=== PATIENT | male | born 1980 | race Caucasian/White ===

== ENCOUNTER 2020-11-07 17:19 | Emergency (ER) | payer OTHER ==
[~2020-11-07] VITALS: Ht 182.9 cm; Wt 104.5 kg
[~2020-11-07 17:19] MED LIST: AMOX1TAB15 PO; FLUT16H NASAL; NAPR-1025 PO
[2020-11-07] MEDS ORDERED: IBUP-2071 PO (17:56)
[2020-11-07 21:05] VITALS: BP 121/72
== END 2020-11-07 21:15 | disposition home or self-care (01) ==
LOC: EMS 17:19
DX: S82.391A Other fracture of lower end of right tibia, initial encounter for closed fracture (principal); X58.XXXA Exposure to other specified factors, initial encounter; Y93.89 Activity, other specified; Y92.89 Other specified places as the place of occurrence of the external cause; Y99.8 Other external cause status
CPT/HCPCS: 29515